=== PATIENT | female | born 1995 | race Caucasian/White ===

== ENCOUNTER → 2024-10-16 18:47 | Outpatient (REF) | payer OTHER, SELFPAY | LOC: MRI 3T 18:47 | PROVIDERS: ATTENDING PHYSICIAN Nurse Practitioner Women's Health; FAMILY PHYSICIAN Internal Medicine | DX: R92.333 Mammographic heterogeneous density, bilateral breasts (principal); Z80.3 Family history of malignant neoplasm of breast | CPT/HCPCS: 77049; A9585 ==